=== PATIENT | female | born 1985 | race Caucasian/White ===

== ENCOUNTER 2022-01-28 22:43 | Emergency (ER) | payer SELFPAY ==
[~2022-01-28] VITALS: Ht 157.5 cm; Wt 68.0 kg
[2022-01-28 22:50] VITALS: BP_SYST 116
[2022-01-29] MEDS ORDERED: ACETAMINOPHEN 500 MG TABLET PO ONE
[2022-01-29] MEDS ORDERED: ACETAMINOPHEN 500 MG TABLET ONE (00:06)
[2022-01-29 00:46] LABS: BASOPHILS # (AUTO) 0.1 K/uL (0.0-0.2); EOSINOPHILS # (AUTO) 0.4 K/uL (0.0-0.4); EOSINOPHILS % (AUTO) 4.4 % (0.0-4.0); HEMATOCRIT 33.9 % (36-48); HEMOGLOBIN 11.7 g/dL (12.0-16.0); LYMPHOCYTES # (AUTO) 2.1 K/uL (1.0-5.5); LYMPHOCYTES % (AUTO) 24.7 % (20.5-51.5); MEAN CORPUSCULAR HEMOGLOBIN 32 pg (27-31); MEAN CORPUSCULAR HGB CONC 35 % (32-36); MEAN CORPUSCULAR VOLUME 92 fL (79.0-98.0); MONOCYTES # (AUTO) 0.6 K/uL (0.0-1.0); NEUTROPHILS # (AUTO) 5.4 K/uL (1.8-7.7); NEUTROPHILS % (AUTO) 62.9 % (40.0-70.0); PLATELET COUNT (AUTO) 246 K/uL (130-430); RED BLOOD CELL COUNT(AUTO) 3.67 MIL/uL (4.2-6.2); RED CELL DISTRIBUTION WIDTH 13.8 % (9.0-15.0); WHITE BLOOD COUNT (AUTO) 8.6 K/uL (4.8-10.8)
[2022-01-29 02:14] VITALS: BP_SYST 130
== END 2022-01-29 02:56 | disposition home or self-care (01) ==
LOC: SED 22:43
DX: O20.0 Threatened abortion (principal); Z3A.01 Less than 8 weeks gestation of pregnancy
CPT/HCPCS: 36415; 76856-TC; 84702; 85025; 86900; 86901; 99284